=== PATIENT | male | born 1950 | race Caucasian/White ===

== ENCOUNTER 2020-04-26 13:53 | Outpatient (REF) | payer MEDICARE, OTHER, SELFPAY ==
[2020-04-26 14:41] LABS: OBS Int Ctl Valid YES; OBS1 NEG (NEG)
== END 2020-04-26 13:54 | disposition home or self-care (01) ==
LOC: HO.LNP 13:53
PROVIDERS: Visit Provider Family Medicine
DX: J96.01 Acute respiratory failure with hypoxia (principal)
CPT/HCPCS: 82272